=== PATIENT | male | born 1990 ===

== ENCOUNTER 2017-11-19 23:04 | Emergency (ER) | payer SELFPAY ==
[2017-11-19 23:16] VITALS: RESP 18; TEMP 99
--- NOTE | 2017-11-20 00:15 | ED PDOC ---
Arrival/HPI - General Chief Complaint: Shortness Of Breath Time Seen by Provider: 11/19/17 23:53 Historian: Patient - History of Present Illness Narrative History of Present Illness (Text): 11/20/17 00:14 Patient is a 27 year old male with no past medical history presenting to the emergency room with shortness of breath for one month and a pre-syncopal episode earlier tonight. While he was driving earlier tonight, he started to get a headache and felt very light headed. It was slow gradual onset but felt like pressure surrounding his whole head. 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 He was also complaining of progressive shortness of breath for the past month. He noticed that he is getting more short of breath at his softball games recently. The shortness of breath improves when he sits down and rests. He has no shortness of breath at rest. He contributes his shortness of breath to his 65 pound weight gain over the past 3 years and his decrease in exercise. He is still smoking hooka approximately one to two times per week. Denies fevers, chills, nausea, vomiting , diarrhea, constipation, chest pain, palpitations, abdominal pain, numbness or tingling. Time/Duration: > month Symptom Onset: Gradual Symptom Course: Intermittent Quality: Pressure Past Medical History - Provider Review Nursing Documentation Reviewed: Yes - Psychiatric Hx Substance Use: No - Anesthesia Hx Anesthesia: No Family/Social History - Physician Review Nursing Documentation Reviewed: Yes Family/Social History: No Known Family HX Smoking Status: Current Some Days Smoker Hx Alcohol Use: Yes Frequency of alcohol use: Few days per week Hx Substance Use: No Allergies/Home Meds Allergies/Adverse Reactions: Allergies No Known Allergies Allergy (Verified 11/19/17 23:17) Home Medications: Home Meds Medication Instructions Recorded Confirmed No Known Home Med 11/19/17 11/19/17 Review of Systems - Physician Review All systems were reviewed & negative as marked: Yes - Review of Systems Constitutional: Normal. absent: Fevers Eyes: Normal. absent: Photophobia ENT: Normal. absent: Sore Throat, Rhinorrhea Respiratory: SOB. absent: Cough, Sputum, Wheezing Cardiovascular: Normal. absent: Chest Pain, Palpitations, Calf Pain Gastrointestinal: Normal. absent: Abdominal Pain, Stool Changes, Constipation, Diarrhea, Nausea, Vomiting, Appetite Changes Musculoskeletal: Normal Skin: Normal Neurological: Headache (resolved ). absent: Focal Weakness, Disequilibrium Endocrine: Normal Psychiatric: Normal Physical Exam Vital Signs Reviewed: Yes Vital Signs Temp Pulse Resp BP Pulse Ox 11/19/17 23:24 18 100 11/19/17 23:15 99 F 71 18 144/70 100 Temperature: Afebrile Blood Pressure: Normal Pulse: Regular Respiratory Rate: Normal Appearance: Positive for: Well-Appearing, Non-Toxic, Comfortable Pain Distress: None Mental Status: Positive for: Alert and Oriented X 3 - Systems Exam Head: Present: Atraumatic, Normocephalic Extroacular Muscles: Present: EOMI Conjunctiva: Present: Normal Mouth: Present: Moist Mucous Membranes Neck: Present: Normal Range of Motion. No: Lymphadenopathy Respiratory/Chest: Present: Clear to Auscultation, Good Air Exchange. No: Respiratory Distress, Accessory Muscle Use, Wheezes, Rales, Retracting, Rhonchi , Tachypneic Cardiovascular: Present: Regular Rate and Rhythm, Normal S1, S2, Peripheal Pulses Present. No: Murmurs Abdomen: No: Tenderness, Distention, Peritoneal Signs Back: Present: Normal Inspection Upper Extremity: Present: Normal Inspection, NORMAL PULSES. No: Cyanosis, Edema Lower Extremity: Present: Normal Inspection. No: Edema, CALF TENDERNESS Neurological: Present: GCS=15, Speech Normal, Motor Func Grossly Intact Skin: Present: Warm, Dry, Normal Color. No: Rashes Psychiatric: Present: Alert, Oriented x 3, Normal Insight, Normal Concentration Medical Decision Making ED Course and Treatment: 11/20/17 01:01 Orders: * CBC * CMP * CXR * EKG 11/20/17 01:06 Normal labs, cxr and ekg. Results discussed with patient. Patient encouraged to quit smoking tobacco, losing weight and increasing exercise. Patient is to follow up with a primary care physician upon discharge. Patient states he understands and agrees. Re-evaluation Time: 01:06 Reassessment Condition: Re-examined, Improved - Lab Interpretations I have reviewed the lab results: Yes - RAD Interpretation Narrative RAD Interpretations (Text): 11/20/17 01:05 CXR: no acute pathology. normal chest xray. Radiology Orders: 11/20/17 00:07 CHEST PORTABLE [RAD] Stat Talent Rep: ED Physician - EKG Interpretation EKG Interpretation (Text): 11/20/17 01:02 Sinus Florian @50bpm, normal axis, No ST changes, otherwise normal EKG Interpreted by ED Physician: Yes Type: 12 lead EKG Comparison: No previous EKG avail. Disposition/Present on Arrival - Present on Arrival Any Indicators Present on Arrival: No History of DVT/PE: No History of Uncontrolled Diabetes: No Urinary Catheter: No History of Decub. Ulcer: No History Surgical Site Infection Following: None - Disposition Have Diagnosis and Disposition been Completed?: Yes Diagnosis: Dyspnea Disposition: HOME/ ROUTINE Disposition Time: Patient Plan: Discharge Condition: FAIR Discharge Instructions (ExitCare): Shortness of Breath (Dyspnea) (DC) Additional Instructions: Patient is to follow up with a primary care physician within 2-3 days of discharge. If patient experiences any new or worsening symptoms, please go directly to the nearest emergency facility. Forms: [email or web address] (Pashto)
[2017-11-20 00:45] LABS: BASO # 0.04 K/mm3 (0.0-2.0); BASO % 0.7 % (0.0-3.0); EOS # 0.4 (0.0-0.7); EOS % 7.7 % (1.5-5.0); GRAN # 1.82 (1.4-6.5); GRAN % 31.9 % (50.0-68.0); HEMOGLOBIN 13.8 g/dL (14.0-18.0); LYMPH # 3.1 (1.2-3.4); LYMPH % 54.4 % (22.0-35.0); MEAN CELL VOLUME 82.1 fl (80.0-105.0); MEAN CORPUSCULAR HEMOGLOBIN 27.8 pg (25.0-35.0); MEAN CORPUSCULAR HGB CONC 33.8 g/dl (31.0-37.0); MEAN PLATELET VOLUME 9.8 fl (7.0-11.0); MONO # 0.3 (0.1-0.6); MONO % 5.3 % (1.0-6.0); RBC 4.97 10^6/uL (3.5-6.1); RED CELL DISTRIBUTION WIDTH 13.5 % (11.5-14.5); WHITE BLOOD COUNT 5.7 10^3/ul (4.5-11.0)
[2017-11-20 00:52] LABS: ALB/GLOB RATIO 1.3 (1.1-1.8)
[2017-11-20 00:57] LABS: ALBUMIN 4.2 g/dL (3.0-4.8); ALT/SGPT 42 U/L (7-56); AST/SGOT 32 U/L (17-59); BLOOD UREA NITROGEN 14 mg/dL (7-21); CALCIUM 9.3 mg/dL (8.4-10.5); GFR AFRICAN-AMERICAN > 60; GFR NON-AFRICAN AMERICAN > 60
[2017-11-20 01:08] VITALS: BP 127/70; PULSE 62; O2SAT 98
--- NOTE | 2017-11-20 07:31 | RAD ---
Date of service: 11/20/2017 HISTORY: sob COMPARISON: No prior. FINDINGS: LUNGS: No active pulmonary disease. PLEURA: No significant pleural effusion identified, no pneumothorax apparent. CARDIOVASCULAR: Normal. OSSEOUS STRUCTURES: No significant abnormalities. VISUALIZED UPPER ABDOMEN: Normal. OTHER FINDINGS: None. IMPRESSION: No active disease.
--- NOTE | 2017-11-20 09:36 | CARD ---
APPROVED REPORT Date of service: 11/20/2017 EKG Measurement Heart [id number] [id number] <Conclusion> Sinus bradycardia Otherwise normal ECG
== END 2017-11-20 01:15 | disposition home or self-care (01) ==
LOC: ED 23:04 → MERGE 23:04 → ED 11-20 01:15
DX: R06.00 Dyspnea, unspecified (principal)